=== PATIENT | female | born 1960 | race Caucasian/White ===

== ENCOUNTER → 2017-05-28 | Day surgery (SDC) | payer OTHER ==
[~2017-05-28] MED LIST: ASPI-482 PO; CYCL10TA2 PO; GLIM4TAB2 PO; IV RINGERS,LACTATED 1000ML 1,000 ML IV SCH; LEVO137T3 PO; MELO15TA23 PO; METF-620 PO; PANT40TA5 PO; PITA2TAB2 PO; PROPOFOL 40 ML IV ONE
[2017-05-28 08:49] VITALS: BP 121/76
--- NOTE | 2017-05-28 10:08 | CONS ---
DATE OF CONSULTATION: 05/28/2017 REASON FOR CONSULTATION: Rectal bleeding. HISTORY OF PRESENT ILLNESS: This 56-year-old female with past medical history significant for depression, diabetes type 2, hypothyroidism, status post , history of colonic polyps as well as hyperlipidemia, seen with recent rectal bleeding. She states there are some watery stools. When she was seen in January, she had some lower abdominal discomfort as well. With those symptoms and the family history of colon cancer, she is here today for surveillance colonoscopy. PAST MEDICAL HISTORY: Depression, diabetes, hypothyroidism, history of , hyperlipidemia, history of colonic polyps. MEDICATIONS: Presently include cyclobenzaprine, glimepiride, levothyroxine, metformin, pantoprazole, and Livalo. ALLERGIES: LISINOPRIL AND PROPOXYPHENE. SOCIAL HISTORY: She is a smoker. She is not a drinker. FAMILY HISTORY: Significant for colon cancer with her mother in her early 70s. REVIEW OF SYSTEMS: Per records. PHYSICAL EXAMINATION: VITAL SIGNS: Temperature is 98, pulse ____, respiratory rate is 20. LUNGS: Clear. CARDIOVASCULAR: S1, S2 without S3, S4 or appreciable murmur. ABDOMEN: Normoactive bowel sounds without appreciable hepatosplenomegaly, soft. EXTREMITIES: Reveals no cyanosis, clubbing or edema. IMPRESSION: Rectal bleeding, etiology is to be determined. Differential includes inflammatory bowel disease, colon polyps, colon cancer, fissures, hemorrhoids, arteriovenous malformations, ischemic colitis, and a diverticular source. Colonoscopy has therefore been recommended and the patient is willing to proceed. Risks and benefits have been previously discussed including risk of hemorrhaging or perforation. BAL LEONG MD DR: DORIS/merritt JOB#: [id number] / [id number]
--- NOTE | 2017-05-29 12:34 | PATHOLOGY ---
PATHOLOGY REPORT * * * * * * * * FINAL DIAGNOSIS: Colon biopsies, ascending colon polyp: - Tubular adenoma. COMMENT: There is no high-grade dysplasia or evidence of malignancy. (JPM:mgr; 05/29/2017) REPORT ELECTRONICALLY SIGNED BY: Silvio Romo M.D. DATE/TIME: 05/29/2017 11:10 * * * * * * * * GROSS PATHOLOGY: Received in formalin labeled "Nick Baeza, ascending colon polyp," are multiple segments of gaston soft tissue measuring from less than 0.1 up to 0.6 cm in maximum dimension. The specimen is submitted entirely in cassette A1. (JPM; 05/28/17) INITIAL CPT CODE(S): A; 37987 Professional services performed [place] [facility] [address] Technical services performed by [facility] at [address] [place] [address]. SPECIMEN(S) RECEIVED: A.Ascending colon polyp CLINICAL HISTORY: Screening PATIENT: NICK BAEZA /AGE: 110/24/1960 (Age: 56) PATIENT #: [id number] ALT CASE #: SPECIMEN COLLECTION DATE: 05/28/2017 SPECIMEN RECEIVED DATE: 05/28/2017 [facility] - [id number] [place] [address] - PHONE: [phone] * * * END OF REPORT * * *
== END | disposition home or self-care (01) ==
LOC: ENDOS 07:01
PROVIDERS: ATTEND Internal Medicine Gastroenterology
DX: D12.2 Benign neoplasm of ascending colon (principal); K64.1 Second degree hemorrhoids; K57.30 Diverticulosis of large intestine without perforation or abscess without bleeding; E78.00 Pure hypercholesterolemia, unspecified; M19.90 Unspecified osteoarthritis, unspecified site; E11.9 Type 2 diabetes mellitus without complications; E03.9 Hypothyroidism, unspecified; F32.9 Major depressive disorder, single episode, unspecified; F17.200 Nicotine dependence, unspecified, uncomplicated; Z86.39 Personal history of other endocrine, nutritional and metabolic disease; Z86.69 Personal history of other diseases of the nervous system and sense organs; Z72.0 Tobacco use; Z88.6 Allergy status to analgesic agent; Z88.8 Allergy status to other drugs, medicaments and biological substances
CPT/HCPCS: 45385; 88305; J2704

== ENCOUNTER → 2017-06-17 | Day surgery (SDC) | payer OTHER ==
[~2017-06-17] MED LIST changes: -IV RINGERS,LACTATED 1000ML 1,000 ML IV SCH; +MIDAZOLAM HCL/PF 2 MG/2 ML VIAL. IV ONE; +MIDAZOLAM HCL/PF 5 MG/5 ML VIAL. IV ONE; +MIDAZOLAM HCL/PF 5 MG/5 ML VIAL. ONE; -PROPOFOL 40 ML IV ONE; +diphenhydrAMINE 50 MG/ML VIAL IV ONE; +diphenhydrAMINE 50 MG/ML VIAL ONE; +fentaNYL PF VIAL 100 MCG/2 ML VIAL IV ONE; +fentaNYL PF VIAL 100 MCG/2 ML VIAL ONE
[2017-06-17 17:36] VITALS: BP 112/62
--- NOTE | 2017-06-17 21:00 | CONS ---
DATE OF CONSULTATION: 06/17/2017 REASON FOR CONSULTATION: Epigastric pain, early satiety and weight loss. HISTORY OF PRESENT ILLNESS: A 56-year-old female with past medical history significant for depression, type 2 diabetes mellitus, hypothyroidism, hyperlipidemia, status post , and ablation; is seen with persistent symptoms. Omeprazole and pantoprazole have not controlled her symptoms. She does take Tums at this time. Denies any dysphagia or odynophagia, but does have significant heartburn issues, requests additional evaluation. PAST MEDICAL HISTORY: Depression, diabetes, hypothyroidism, IBS, history of , hyperlipidemia, and history of colon polyps. ALLERGIES: LISINOPRIL, PROPOXYPHENE, and OMEGA-3. MEDICATIONS: Include cyclobenzaprine, glimepiride, levothyroxine, metformin, pantoprazole, and Livalo. SOCIAL HISTORY: She is a smoker, but not a drinker. FAMILY HISTORY: Significant for colorectal cancer in mother. REVIEW OF SYSTEMS: Per records. PHYSICAL EXAMINATION: GENERAL: Reveals a well-nourished, well-developed female who is alert, conversant, in mild distress. VITAL SIGNS: Temperature 98.1, pulse , and respiratory rate 20. HEENT: Normocephalic and atraumatic head. Pupils and extraocular muscles not tested. Sclerae anicteric. NECK: Supple. LUNGS: Clear. CARDIOVASCULAR: Reveals S1, S2 without S3, S4 or appreciable murmur. ABDOMEN: Soft abdomen, normal bowel sounds, without appreciable hepatosplenomegaly. EXTREMITIES: Reveals no cyanosis, clubbing, or edema. IMPRESSION: Abdominal pain, etiology is to be determined. Differential includes peptic ulcer disease, gastroparesis, and gallbladder disease. We will recommend upper endoscopy to further assess if this is unrevealing and hepatobiliary scanning, gastric emptying study would be pursued. BAL LEONG MD DR: DORIS/merritt JOB#: [id number] / [id number]
== END | disposition home or self-care (01) ==
LOC: ENDOS 15:25
PROVIDERS: ATTEND Internal Medicine Gastroenterology
DX: K29.50 Unspecified chronic gastritis without bleeding (principal); E78.00 Pure hypercholesterolemia, unspecified; M19.91 Primary osteoarthritis, unspecified site; M81.0 Age-related osteoporosis without current pathological fracture; E11.9 Type 2 diabetes mellitus without complications; E03.9 Hypothyroidism, unspecified; F17.200 Nicotine dependence, unspecified, uncomplicated; F32.9 Major depressive disorder, single episode, unspecified; Z86.39 Personal history of other endocrine, nutritional and metabolic disease; Z87.39 Personal history of other diseases of the musculoskeletal system and connective tissue; Z72.0 Tobacco use; Z88.8 Allergy status to other drugs, medicaments and biological substances; Z88.6 Allergy status to analgesic agent
CPT/HCPCS: 43235; 82962; J1200; J2250; J3010

== ENCOUNTER 2017-12-29 08:24 | Emergency (ER) | payer OTHER ==
[2017-12-29 09:14] LABS: ADD MAN DIFF? NO
[2017-12-29 09:17] LABS: BASO # 0.1 x10^3/uL (0.0-0.2); BASO % 1 % (0-3); EOS # 0.1 x10^3/uL (0.0-0.7); EOS % 1 % (0-3); HEMATOCRIT 44.5 % (36.0-47.0); HEMOGLOBIN 15.3 g/dL (12.0-15.5); LYMPH # 1.8 x10^3/uL (1.0-4.8); LYMPH % 26 % (24-48); MEAN CORPUSCULAR HEMOGLOBIN 31 pg (25-35); MEAN CORPUSCULAR HGB CONC 35 g/dL (31-37); MEAN CORPUSCULAR VOLUME 90 fL (79-100); MONO # 0.3 x10^3/uL (0.0-1.1); MONO % 4 % (0-9); NEUT # 4.5 x10^3uL (1.8-7.7); NEUT % 67 % (31-73); PLATELET COUNT 180 x10^3/uL (140-400); RED BLOOD COUNT 4.96 x10^6/uL (3.50-5.40); RED CELL DISTRIBUTION WIDTH 13.6 % (11.5-14.5); WHITE BLOOD COUNT 6.8 x10^3/uL (4.0-11.0)
[2017-12-29 09:18] LABS: BILIRUBIN,URINE NEGATIVE (NEG); CLARITY,URINE CLEAR; COLOR,URINE YELLOW; GLUCOSE,URINE NEGATIVE (NEG); NITRITE,URINE NEGATIVE (NEG); PH,URINE 6.5; PROTEIN,URINE NEGATIVE (NEG-TRACE); UROBILINOGEN,URINE 0.2 mg/dL (0.2 mg/dL)
[2017-12-29] MEDS: IV NORMAL SALINE 500ML BAG 500 ML IV (09:21)
[2017-12-29 09:26] LABS: ANION GAP 11 (6-14); BLOOD UREA NITROGEN 13 mg/dL (7-20); BUN/CREATININE RATIO 16 (6-20); CALCIUM 9.5 mg/dL (8.5-10.1); CARBON DIOXIDE 26 mmol/L (21-32); CHLORIDE 105 mmol/L (98-107); CREATININE 0.8 mg/dL (0.6-1.0); GFR 73.9; GLUCOSE 142 mg/dL (70-99); POTASSIUM 4.1 mmol/L (3.5-5.1); SODIUM 142 mmol/L (136-145)
[2017-12-29 09:29] LABS: BACTERIA,URINE FEW /HPF (0-FEW); RBC,URINE OCC /HPF (0-2); SQUAMOUS EPITHELIAL CELL,UR MANY /LPF
[2017-12-29] MEDS ORDERED: CONTRAST GIVEN MC (09:30)
[2017-12-29 09:32] LABS: ALBUMIN 3.5 g/dL (3.4-5.0); ALBUMIN/GLOBULIN RATIO 0.9 (1.0-1.7); ALK PHOS 97 U/L (46-116); ALT (SGPT) 54 U/L (14-59); AST (SGOT) 23 U/L (15-37); LIPASE 129 U/L (73-393); TOTAL BILIRUBIN 0.2 mg/dL (0.2-1.0); TOTAL PROTEIN 7.3 g/dL (6.4-8.2)
[2017-12-29 09:58] LABS: FECAL OB PT POSITIVE (NEG); NEG OBC FOB NEG; POS OBC FOB POS
[2017-12-29] MEDS: IOHEXOL 300 MG/ML 100ML VIAL. IV (10:14)
== END 2017-12-29 12:47 | disposition home or self-care (01) ==
LOC: ER 08:24
DX: K62.5 Hemorrhage of anus and rectum (principal); R10.9 Unspecified abdominal pain; E11.9 Type 2 diabetes mellitus without complications; E03.9 Hypothyroidism, unspecified; K58.9 Irritable bowel syndrome, unspecified; Z86.010 Personal history of colon polyps; Z88.6 Allergy status to analgesic agent; Z88.8 Allergy status to other drugs, medicaments and biological substances
CPT/HCPCS: 36415; 74177; 80053; 81001; 82274; 83690; 85025; 93005; 96360; 99285-25; J7040; Q9967

== ENCOUNTER → 2020-04-17 | Outpatient (CLI) | payer OTHER ==
[2017-12-29 11:55] VITALS: BP 112/66
[~2020-04-17] MED LIST changes: -GLIM4TAB2 PO; +GLIM4TAB8 PO; -METF-620 PO; +METF10007 PO; -MIDAZOLAM HCL/PF 2 MG/2 ML VIAL. IV ONE; -MIDAZOLAM HCL/PF 5 MG/5 ML VIAL. IV ONE; -MIDAZOLAM HCL/PF 5 MG/5 ML VIAL. ONE; -PANT40TA5 PO; +PANT40TA77 PO; -diphenhydrAMINE 50 MG/ML VIAL IV ONE; -diphenhydrAMINE 50 MG/ML VIAL ONE; -fentaNYL PF VIAL 100 MCG/2 ML VIAL IV ONE; -fentaNYL PF VIAL 100 MCG/2 ML VIAL ONE
--- NOTE | 2020-04-17 13:14 | KCIC ---
EXAM: Lumbar spine MRI without contrast. HISTORY: Chronic back pain and lumbar radiculopathy. TECHNIQUE: Multiplanar, multisequence magnetic resonance imaging of the lumbar spine was performed without contrast. COMPARISON: None. FINDINGS: There is mild lumbar levoscoliosis centered at L2-L3. There is no significant listhesis. There is multilevel endplate remodeling. There are few osseous hemangiomas, the largest of which is seen within the posterior aspect of L1. There are chronic right superior endplate depressions at L3 and L4 due to the levels of maximum scoliotic concavity. The conus terminates at L1. At L1-L2, there is a diffuse disc bulge and endplate remodeling. There is mild left foraminal stenosis. At L2-L3, there is a disc bulge and endplate remodeling. There is no stenosis. At L3-L4, there is a disc bulge and right lateral predominant endplate osteophytosis. There is no stenosis. At L4-L5, there is endplate remodeling. There is no stenosis. At L5-S1, there is a posterior central to left paracentral disc protrusion superimposed on a disc bulge and left lateral predominant endplate osteophytosis. There is mild left facet arthropathy. There is mild left foraminal stenosis with suspected abutment of the exiting left L5 nerve root. IMPRESSION: 1. Multilevel degenerative change involving the lumbar spine, described in detail above. This is associated with mild left foraminal stenosis at L1-L2 and mild left foraminal stenosis with abutment of the exiting left L5 nerve root at L5-S1. 2. Lumbar scoliosis. Electronically signed by: Natalia Mata MD (04/17/2020 1:11 PM) [id number]
== END ==
LOC: KCIC MRI 12:28
PROVIDERS: ATTEND Family Medicine
DX: M41.86 Other forms of scoliosis, lumbar region (principal); M47.817 Spondylosis without myelopathy or radiculopathy, lumbosacral region; M48.07 Spinal stenosis, lumbosacral region
CPT/HCPCS: 72148